=== PATIENT | male | born 1950 | race Caucasian/White ===

== ENCOUNTER 2021-02-06 11:35 | Emergency (ER) | payer MEDICARE, OTHER ==
--- NOTE | 2021-02-06 12:04 | ED Physician Documentation ---
PD HPI DYSPNEA - Stated complaint Stated Complaint: HIGH BLOOD PRESSURE - Chief complaint Chief Complaint: Cardiac - History obtained from History obtained from: Patient - History of Present Illness Timing - onset: How many days ago (has noted BP to be increasing during day over the past few days. He is visiting from [place] and states he has been eating more grille food and salty stuff while here. Recently seen in [place] last week for TIA and is on Amlodipine, ASA, and statin as new meds the past week.) Timing - onset during: Rest, Light activity Timing - duration: Days (has had increasing BP with lower numbers being 150-160 systolic. Today noted BP at over 200 systolic, but no chest pain, headache, confusion.) Timing - details: Waxing and waning Inciting event(s): No: Out of meds, URI Improved by: No: Rest Associated symptoms: Other (no chest pain, dyspnea, headache). No: Fever, Cough, Bilateral edema Recently seen: Admitted (seen in [place] last week for TIA of confusion and right weakness that resolved, with normal testing. New meds on discharge.) Review of Systems Constitutional: denies: Fever, Chills Nose: denies: Rhinorrhea / runny nose, Congestion Throat: denies: Sore throat Cardiac: denies: Chest pain / pressure Respiratory: denies: Dyspnea, Cough GI: denies: Nausea, Vomiting Musculoskeletal: denies: Extremity swelling Neurologic: denies: Focal weakness, Numbness, Altered mental status, Headache PD PAST MEDICAL HISTORY - Past Medical History Past Medical History: Yes Cardiovascular: Hypertension, High cholesterol Respiratory: None Neuro: None Endocrine/Autoimmune: None Psych: None - Past Surgical History Past Surgical History: Yes - Present Medications Home Medications: Ambulatory Orders Medication Instructions Recorded Confirmed Aspirin [Aspirin EC] 81 mg PO DAILY 02/06/21 02/06/21 Atorvastatin Calcium [Lipitor] 80 mg PO DAILY 02/06/21 02/06/21 amLODIPine [Norvasc] 5 mg PO DAILY 02/06/21 02/06/21 - Allergies Allergies/Adverse Reactions: Allergies Allergy/AdvReac Type Severity Reaction Status Date / Time No Known Drug Allergies Allergy Verified 02/06/21 11:52 - Social History Does the pt smoke?: No Smoking Status: Never smoker - Immunizations Immunizations are current?: Yes PD ED PE NORMAL - Vitals Vital signs reviewed: Yes - General General: Alert and oriented X 3, No acute distress, Well developed/nourished - Neck Neck: Supple, no meningeal sign, No adenopathy - Cardiac Cardiac: RRR, No murmur - Respiratory Respiratory: Clear bilaterally - Abdomen Abdomen: Soft, Non tender - Derm Derm: Normal color, Warm and dry - Extremities Extremities: No edema, No calf tenderness / cord - Neuro Neuro: Alert and oriented X 3, No motor deficit, Normal speech Results - Vitals Vitals: Vital Signs - 24 hr 02/06/21 02/06/21 02/06/21 11:41 12:24 13:37 Temperature 37.1 C 37.3 C Heart Rate 101 H 82 72 Respiratory 18 21 20 Rate Blood Pressure 210/94 H 173/79 H 155/80 H O2 Saturation 97 97 97 Oxygen O2 Source Room air - EKG (time done) 11:43 Rhythm: NSR [place]: Normal Intervals: Wide QRS (incomplete BBB with ST depressions V1-V3. No comparisons available.) - Labs Labs: Laboratory Tests 02/06/21 02/06/21 02/06/21 12:33 12:33 12:33 WBC 8.2 RBC 4.29 L Hgb 12.9 L Hct 38.1 L MCV 88.8 MCH 30.1 MCHC 33.9 RDW 13.0 Plt Count 291 MPV 9.8 Neut # (Auto) 6.7 H Lymph # (Auto) 0.6 L [place] # (Auto) 0.9 Eos # (Auto) 0.0 Baso # (Auto) 0.0 Absolute Nucleated RBC 0.00 Nucleated RBC % 0.0 Sodium 134 L Potassium 3.7 Chloride 98 L Carbon Dioxide 25 Anion Gap 11.0 BUN 11 Creatinine 0.8 Estimated GFR (MDRD) 95 Glucose 128 H Calcium 9.3 Magnesium 2.1 Total Bilirubin 0.7 AST 14 ALT 18 Alkaline Phosphatase 89 Troponin I High Sens 5.0 Total Protein 7.3 Albumin 3.8 Globulin 3.5 Albumin/Globulin Ratio 1.1 Lipase 20 L PD MEDICAL DECISION MAKING - ED course Complexity details: re-evaluated patient (can increase his BP med. He is returning to [place] in couple days.), considered differential (His ECG is abnormal but likely c/w incomplete BBB. No comparison readily available, and can try to get one from recent admission in [place]. Otherwise will check lytes, renal function, and also add troponin due to ECG. Not having chest pain nor dyspnea.), d/w patient Departure - Departure Disposition: 01 Home, Self Care Clinical Impression: High blood pressure Qualifiers: Hypertension type: unspecified Qualified Code(s): I10 - Essential (primary) hypertension Condition: Stable Record reviewed to determine appropriate education?: Yes Instructions: ED HTN Established Comments: Your electrolytes and kidney function and blood count appear normal. Your blood pressure has improved without particular treatment here and currently is 155/83. However since it has been running around this level and can go higher as it did this morning, I would suggest increasing your amlodipine from the current 5mg to 10 mg daily. Additionally be sure to have a low-salt diet and eat well. Follow-up with your primary care back home. Discharge Date/Time: 02/06/21 14:00
[2021-02-06 12:39] LABS: BASOPHILS % (AUTO) 0.4 %; EOSINOPHILS % (AUTO) 0.1 %; HCT - HEMATOCRIT 38.1 % (42.0-52.0); HGB - HEMOGLOBIN 12.9 g/dL (14.0-18.0); LYMPHOCYTES # (AUTO) 0.6 10^3/uL (1.5-3.5); LYMPHOCYTES % (AUTO) 7.4 %; MEAN CORPUSCULAR HEMOGLOBIN 30.1 pg (27.0-31.0); MEAN CORPUSCULAR HGB CONC 33.9 g/dL (32.0-36.0); MEAN CORPUSCULAR VOLUME 88.8 fL (80.0-94.0); MEAN PLATELET VOLUME 9.8 fL (7.4-11.4); MONOCYTES # (AUTO) 0.9 10^3/uL (0.0-1.0); MONOCYTES % (AUTO) 10.6 %; NEUTROPHILS # (AUTO) 6.7 10^3/uL (1.5-6.6); NEUTROPHILS % (AUTO) 81.1 %; PLT - PLATELET COUNT 291 10^3/uL (130-450); RED BLOOD COUNT 4.29 10^6/uL (4.70-6.10); WHITE BLOOD COUNT 8.2 x10^3/uL (4.8-10.8)
[2021-02-06 12:54] LABS: ALBUMIN 3.8 g/dL (3.2-5.5); ALBUMIN/GLOBULIN RATIO 1.1 (1.0-2.2); BILIRUBIN,TOTAL 0.7 mg/dL (0.2-1.0); CALCIUM 9.3 mg/dL (8.5-10.3); CREATININE 0.8 mg/dL (0.6-1.2); MAGNESIUM 2.1 mg/dL (1.7-2.8); POTASSIUM 3.7 mmol/L (3.5-5.0); TOTAL PROTEIN 7.3 g/dL (6.7-8.2)
[2021-02-06 13:37] VITALS: BP 155/80
== END 2021-02-06 14:00 | disposition home or self-care (01) ==
LOC: ED 11:35
DX: I10 Essential (primary) hypertension (principal); I45.4 Nonspecific intraventricular block; Z86.73 Personal history of transient ischemic attack (TIA), and cerebral infarction without residual deficits; Z79.82 Long term (current) use of aspirin
CPT/HCPCS: 36415; 80053; 83690; 83735; 84484; 85025; 93005; 99283; 99284